=== PATIENT | male | born 1945 | race Caucasian/White ===

== ENCOUNTER 2019-03-17 00:54 | Emergency (ER) | payer SELFPAY ==
[~2019-03-17] VITALS: Ht 172.7 cm; Wt 77.9 kg
[2019-03-17 00:57] VITALS: BP 167/71; PULSE 54; RESP 18; Ht 172.7 cm; Wt 77.9 kg
== END 2019-03-17 00:57 | disposition left against medical advice (07) ==
LOC: E/R 00:54
DX: Z53.21 Procedure and treatment not carried out due to patient leaving prior to being seen by health care provider (principal)